=== PATIENT | female | born 1965 | race Caucasian/White ===

== ENCOUNTER 2022-02-04 14:59 | Outpatient (CLI) | payer MEDICAID ==
--- NOTE | 2022-02-11 16:26 | Mammography Report ---
BILATERAL DIGITAL SCREENING MAMMOGRAM 3D/2D: 02/04/2022 CLINICAL: Routine screening. Comparison is made to exams dated: 06/25/2016 mammogram and 05/30/2014 mammogram - [facility], [place]. There are scattered areas of fibroglandular density in both breasts (category b / 25%-50% glandular t issue). No significant masses, calcifications, or other findings are seen in either breast. There has been no significant interval change. IMPRESSION: NEGATIVE There is no mammographic evidence of malignancy. A 1 year screening mammogram is recommended. Based on the Tyrer Cuzick model (a risk assessment model) the patients lifetime risk is 8.2% and her 10 year risk is 2.5%. According to the ACR, ACS, and NCCN guidelines, an annual breast MRI exam lety g with mammogram is recommended if the patients lifetime risk is 20% or greater. This exam was interpreted at Station ID: [id number]. NOTE: For mammograms, a report in lay terms will be sent to the patient. Approximately 15% of breast malignancies will not be visualized mammographically. In the management of a palpable breast mass, a negative mammogram must not discourage biopsy of a clinically suspicious lesion. Electronically Signed By: Cipriano Odonnell M.D. aty/aisfrad:02/11/2022 07:41:58 ACR BI-RADS Category 1: Negative 3341F PARENCHYMAL PATTERN: (A) - The breast(s) demonstrate(s) scattered fibroglandular densities. BI-RADS CATEGORY: (1) - 1 RECOMMENDATION: (ANNUAL) - Recommend routine annual screening mammography. [id number] 1 year screening LATERALITY: (B)
== END 2022-02-04 15:00 | disposition home or self-care (01) ==
LOC: DI 14:59
PROVIDERS: ATTEND Obstetrics & Gynecology
DX: Z12.31 Encounter for screening mammogram for malignant neoplasm of breast (principal)

== ENCOUNTER 2022-04-20 12:34 | Outpatient (CLI) | payer MEDICAID | END 2022-04-20 12:35 | disposition home or self-care (01) | LOC: LAB 12:34 | PROVIDERS: ATTEND Obstetrics & Gynecology | DX: N95.0 Postmenopausal bleeding (principal) | CPT/HCPCS: 36415; 83001 ==

== ENCOUNTER 2022-04-24 18:46 | Outpatient (CLI) | payer MEDICAID ==
--- NOTE | 2022-04-28 08:56 | Ultrasound Report ---
PROCEDURE: Pelvic w/Transvaginal INDICATIONS: POST MENOPAUSAL BLEEDING TECHNIQUE: Real-time scanning was performed of the pelvic organs, with image documentation. Additional endovagi nal scanning was necessary due to incomplete visualization of the adnexal and endometrial structures by transabdominal scanning. COMPARISON: None. FINDINGS: The uterine body is mildly enlarged measuring 9.1 x 4.5 x 4.3 cm. There are two uterine fibroids iden tified, one right anterior pedunculated sub-serosal fibroid measuring 4.4 x 4.1 x 4.0 cm, and another left midline intramural fibroid measuring 2.1 x 2.5 x 1.8 cm. Mildly thickened endometrium measuring up to 9 mm. Right ovarian cyst measuring 1.8 cm. Left ovarian cyst measuring 1.9 cm. Otherwise zay l appearance of both ovaries. IMPRESSION: Mildly enlarged uterus with mildly thickened endometrium measuring up to 9 mm. At least two uterine fibroids identified, detailed above. Reviewed by: Jose Alfredo Luevano MD on 04/28/2022 8:50 AM PST Approved by: Jose Alfredo Luevano MD on 04/28/2022 8:50 AM PST Station ID: [id number]
== END 2022-04-24 18:47 | disposition home or self-care (01) ==
LOC: DI 18:46
PROVIDERS: ATTEND Obstetrics & Gynecology
DX: D25.2 Subserosal leiomyoma of uterus (principal); D25.1 Intramural leiomyoma of uterus; R93.89 Abnormal findings on diagnostic imaging of other specified body structures; N83.202 Unspecified ovarian cyst, left side; N83.201 Unspecified ovarian cyst, right side; N95.0 Postmenopausal bleeding

== ENCOUNTER 2022-06-11 05:17 | Emergency (ER) | payer MEDICAID ==
--- NOTE | 2022-06-11 05:20 | ED Physician Documentation ---
PD HPI CHEST PAIN - Stated complaint Stated Complaint: CHEST PX - History obtained from History obtained from: Patient - Additional information Additional information: c/o left chest pressure, gradual onset approximately 2 PM this afteroon while at home at rest, gradually radiating over to involve midline anterior chest as well. She had similar symptoms with irregular palpitations 2 nights ago without inciting nor specific circumstances. Tonights left/mid chest pressure has been waxing and waning without noticeable waxing/waning factors. She notes intermittent radiation to right shoulder. Denies h/o similar symptoms. Denies fever, cough, dyspnea. Has never had a stress test. PD PAST MEDICAL HISTORY - Present Medications Home Medications: Ambulatory Orders Medication Instructions Recorded Confirmed No Known Home Medications 06/11/22 06/11/22 - Allergies Allergies/Adverse Reactions: Allergies Allergy/AdvReac Type Severity Reaction Status Date / Time No Known Drug Allergies Allergy Verified 06/11/22 05:29 Results - Vitals Vitals: Oxygen O2 Source Room air - EKG (time done) No standard instances EKG releavant findings:: EKG personally interpreted by author of this note. Relevant findings are: Rate: Rate (enter#) (78) Rhythm: NSR [place]: LAD Intervals: Normal NE QRS: Normal Ischemia: Normal ST segments - Labs Labs: Laboratory Tests 06/11/22 06/11/22 06/11/22 05:28 05:28 05:28 WBC 8.0 RBC 4.78 Hgb 13.9 Hct 42.2 MCV 88.3 MCH 29.1 MCHC 32.9 RDW 12.5 Plt Count 264 MPV 9.2 Neut # (Auto) 4.3 Lymph # (Auto) 2.8 [place] # (Auto) 0.6 Eos # (Auto) 0.3 Baso # (Auto) 0.1 Absolute Nucleated RBC 0.00 Nucleated RBC % 0.0 Sodium 139 Potassium 4.2 Chloride 106 Carbon Dioxide 23 Anion Gap 10.0 BUN 10 Creatinine 0.7 Estimated GFR (MDRD) 87 L Glucose 103 H Calcium 9.3 Total Bilirubin 0.6 AST 23 ALT 24 Alkaline Phosphatase 101 Troponin I High Sens 6.8 Total Protein 7.9 Albumin 3.9 Globulin 4.0 Albumin/Globulin Ratio 1.0 Lipase 45 - Rads (name of study) chest xray Relevant Findings:: Prelim report reviewed, EMP independent interpretation of test (no acute cardiopulmonary findings; specifically, no infiltrate, pneumothorax; normal medisatinual shadwo), See rad report PD Medical Decision Making - ED course Complexity details: reviewed results, re-evaluated patient, considered differential, d/w patient ED course: EKG, CBC, ER abdominal panel are all normal, as is the chest xray. She has no ectopy during ED stay and her symptoms resolved early in stay without specific intervention. Results reviewed with patient, return precautions discussed. Advised to seek nex t available appointment for follow up with PMD. Departure - Departure Disposition: Home, Self Care Clinical Impression: Chest pain Qualifiers: Chest pain type: unspecified Qualified Code(s): R07.9 - Chest pain, unspecified Condition: Good Instructions: ED Chest Pain Atypical Unkn Cause Comments: There were no concerning or diagnostic findings on the test performed tonight; tests included EKG, chest x-ray, and blood test (including a cardiac enzyme blood test). The cause of your symptoms is not apparent at this time. You might need further testing even if the symptoms do not recur. I recommend that you follow-up with your primary care provider. If you do not have a primary care provider, contact your insurance provider to ask for a referral to a local outpatient practitioner (such as a family practice). Certainly, if your symptoms worsen, you can always return to the emergency department for reevaluation. Discharge Date/Time: 06/11/22 07:29
[2022-06-11 05:39] LABS: BASOPHILS # (AUTO) 0.1 10^3/uL (0.0-0.1); BASOPHILS % (AUTO) 0.7 %; EOSINOPHILS # (AUTO) 0.3 10^3/uL (0.0-0.7); EOSINOPHILS % (AUTO) 3.2 %; HCT - HEMATOCRIT 42.2 % (37.0-47.0); HGB - HEMOGLOBIN 13.9 g/dL (12.0-16.0); LYMPHOCYTES # (AUTO) 2.8 10^3/uL (1.5-3.5); LYMPHOCYTES % (AUTO) 34.8 %; MEAN CORPUSCULAR HEMOGLOBIN 29.1 pg (27.0-31.0); MEAN CORPUSCULAR HGB CONC 32.9 g/dL (32.0-36.0); MEAN CORPUSCULAR VOLUME 88.3 fL (81.0-99.0); MEAN PLATELET VOLUME 9.2 fL (7.9-10.8); MONOCYTES # (AUTO) 0.6 10^3/uL (0.0-1.0); MONOCYTES % (AUTO) 7.4 %; NEUTROPHILS # (AUTO) 4.3 10^3/uL (1.5-6.6); NEUTROPHILS % (AUTO) 53.8 %; PLT - PLATELET COUNT 264 10^3/uL (130-450); RED BLOOD COUNT 4.78 10^6/uL (4.20-5.40); RED CELL DISTRIBUTION WIDTH 12.5 % (12.0-15.0)
[2022-06-11 05:54] LABS: ALBUMIN 3.9 g/dL (3.2-5.5); BILIRUBIN,TOTAL 0.6 mg/dL (0.2-1.0); CALCIUM 9.3 mg/dL (8.5-10.3); CREATININE 0.7 mg/dL (0.4-1.0); POTASSIUM 4.2 mmol/L (3.5-5.0); TOTAL PROTEIN 7.9 g/dL (6.7-8.2)
[2022-06-11 07:29] VITALS: BP 111/77
--- NOTE | 2022-06-11 08:01 | XRAY Report ---
PROCEDURE: Chest 2 View X-Ray INDICATIONS: chest pain TECHNIQUE: 2 views of the chest were acquired. COMPARISON: None. FINDINGS: Surgical changes and devices: None. Lungs and pleura: No pleural effusions or pneumothorax. Lungs are clear. Mediastinum: Mediastinal contours are normal. Heart size is normal. Bones and chest wall: No suspicious bony abnormalities. Soft tissues appear unremarkable. IMPRESSION: No acute cardiopulmonary process. Reviewed by: Charles Menjivar on 06/11/2022 8:00 AM RIGO Approved by: Charles Menjivar on 06/11/2022 8:00 AM [facility] Station ID: [id number]
== END 2022-06-11 07:29 | disposition home or self-care (01) ==
LOC: ED 05:17
DX: R07.9 Chest pain, unspecified (principal)
CPT/HCPCS: 36415; 80053; 83690; 84484; 85025; 93005; 99283; 99284